=== PATIENT | male | born 1935 | race Caucasian/White ===

== ENCOUNTER 2022-08-11 00:09 | Inpatient (IN) | payer MEDICARE ==
[~2022-08-11] VITALS: Ht 167.6 cm; Wt 72.6 kg
--- NOTE | 2022-08-11 00:23 | NUR ---
Seen and examined by Dr. Luna MRSA culture swab collected
[2022-08-11] MEDS ORDERED: ATOR40TA PO (00:41)
[2022-08-11] MEDS ORDERED: CALC-1310 PO (00:41)
[2022-08-11] MEDS ORDERED: LEVO137T2 PO (00:41)
[2022-08-11] MEDS ORDERED: LOSA25TA27 PO (00:41)
[2022-08-11] MEDS ORDERED: FLUT1BLS6 IH (00:41)
[2022-08-11] MEDS ORDERED: APIX5TAB PO (00:41)
[2022-08-11] MEDS ORDERED: LATA2.5D15 EACHEYE (00:41)
[2022-08-11] MEDS ORDERED: OMEG1CAP PO ×2 (00:41→15:42)
[2022-08-11] MEDS ORDERED: CYAN-51 SL (00:41)
[2022-08-11] MEDS ORDERED: ASCO-375 PO (00:41)
[2022-08-11] MEDS ORDERED: OMEP20TA5 PO (00:41)
[2022-08-11] MEDS ORDERED: BUSP5TAB3 PO (00:41)
[2022-08-11] MEDS ORDERED: TACR1CAP2 PO ×2 (00:41)
[2022-08-11] MEDS ORDERED: ARMO150T2 PO (00:41)
[2022-08-11] MEDS ORDERED: MULT-594 PO (00:41)
[2022-08-11] MEDS ORDERED: MYCO250C PO (00:41)
--- NOTE | 2022-08-11 00:51 | NUR ---
Contacted Luz Elena
--- NOTE | 2022-08-11 02:34 | NUR ---
Luz Elena came.
--- NOTE | 2022-08-11 04:00 | NUR ---
GPS ADMISSION: Patient is a 87 year old male ,with multiple medical problems. The patient went to [facility], then came to [facility] and was put a 5150 for Suicidal Ideations. Per hold, the patient had verbalized having SI for the last 4 months and has had a failed suicide attempt in the past. Upon face to face evaluation, the patient looked unkept, was irritable, argumentative and short tempered. The patient did however make a verbal contract for safety with this policy writer typist. A Patients Rights Handbook and the Patient Advisement were provided to him . All belongings were inventoried and placed in safe. The unit rules, and expectations, plus the plan of care were discussed and the patient verbalized understanding. Safety Stratiges are in place at this time. No acute distress noted. Will endorse plan of care to the oncoming shift.
[2022-08-11] MEDS ORDERED: LORAZEPAM 1 MG TABLET PO PRN (05:30)
[2022-08-11] MEDS ORDERED: ACETAMINOPHEN 325 MG TABLET PO PRN (05:30)
[2022-08-11] MEDS ORDERED: MAGNESIUM HYDROXIDE 30 ML LIQUID UDC PO PRN (05:30)
[2022-08-11] MEDS ORDERED: MAG HYDROX/AL HYDROX/SIMETH 30 ML LIQUID UDC PO PRN (05:30)
[2022-08-11] MEDS ORDERED: TEMAZEPAM 7.5 MG CAPSULE PO PRN (05:30)
[2022-08-11 06:00] VITALS: BP 144/94
[2022-08-11 07:51] VITALS: BP 125/68
--- NOTE | 2022-08-11 10:40 | NUR ---
MANOLO Initial Discharge Note: Pt currently resides at a residential living called [facility] located at [address] [place] [address] ([phone]. Pt stated he is close with his demtyrhx-wk-fvn, Naz and significant other, Jackelin ([phone]. Pt's son, Elfgeo [phone] is his DPOA per pt. MANOLO will continue to work with pt, family and MD to ensure a safe and proper discharge plan.
[2022-08-11] MEDS: ESCITALOPRAM OXALATE 10 MG TABLET PO SCH (10:48)
[2022-08-11 15:26] VITALS: BP 131/83
[2022-08-11] MEDS: MYCOPHENOLATE MOFETIL 250 MG CAPSULE PO SCH (16:30)
[2022-08-11] MEDS: APIXABAN 5 MG TABLET PO SCH (16:31)
--- NOTE | 2022-08-11 18:26 | NUR ---
GPS: Nursing Notes: Destructive Behavior To Self: Patient is awake and responding to his name, uncooperative with nursing care, depressed mood and angry affect, overly demanding at times, gets easily irritable when redirected, argumentative, but following staff directions, when questioned by staff, stated, "No, I do not want to hurt myself... You guys wrote down that thing in the emergency department.." compliant with his mediations, verbally venu for safety, ambulatory with fww, unkempt appearance, unable to formulate a viable plan for self care, continue to monitor for safety, continue with treatment plan.
[2022-08-11 20:00] VITALS: BP 128/79
--- NOTE | 2022-08-11 20:30 | NUR ---
Received patient in his bed sleeping but easily arousable. He is noted A/O x 3 able to make his needs known and able to ambulate with the aid of a FWW. patient is focus on his medication regiment. he stated, "Make sure i am getting all my medications right". He stated that he is here because, "I need to come here and be put on a 5150 to be enrolled in a geriatric unit, so i was told". Patient denied SI or any plans to harm self. denial is convincing. patient is reassure for his safety, safety and fall precautions are in place. V/S are stable. he was given PO Fluids and snacks. all his needs are met. he is compliant with medication regiment. will continue to monitor.
[2022-08-11] MEDS: QUETIAPINE FUMARATE 25 MG TABLET PO SCH (20:31)
[2022-08-11] MEDS: ATORVASTATIN 40 MG TABLET PO SCH (20:31)
[2022-08-11] MEDS: TACROLIMUS ANHYDROUS 0.5 MG CAPSULE PO SCH (20:31)
[2022-08-11] MEDS: LATANOPROST OPHT DROP 2.5 ML BOTTLE EACHEYE SCH (20:31)
[2022-08-12] MEDS: PANTOPRAZOLE SODIUM 40 MG TABLET.DR PO SCH (07:04)
[2022-08-12] MEDS: LEVOTHYROXINE SODIUM 137 MCG TABLET PO SCH (07:06)
[2022-08-12 07:30] VITALS: BP 145/73
[2022-08-12] MEDS: TACROLIMUS ANHYDROUS 0.5 MG CAPSULE PO SCH ×2 (10:16→21:18)
[2022-08-12] MEDS: CYANOCOBALAMIN 1,000 MCG TABLET PO SCH (10:17)
[2022-08-12] MEDS: ASCORBIC ACID 500 MG TABLET PO SCH (10:18)
[2022-08-12] MEDS: APIXABAN 5 MG TABLET PO SCH ×2 (10:19→17:33)
[2022-08-12] MEDS: ESCITALOPRAM OXALATE 10 MG TABLET PO SCH (10:21)
[2022-08-12] MEDS: FLUTICASONE/VILANTEROL 1 EACH BLST.W.DEV INH SCH (10:28)
[2022-08-12] MEDS: CALCIUM CARBONATE 600 MG TABLET PO SCH (10:29)
[2022-08-12] MEDS: MYCOPHENOLATE MOFETIL 250 MG CAPSULE PO SCH ×2 (10:29→17:32)
[2022-08-12] MEDS: LOSARTAN POTASSIUM 25 MG TABLET PO SCH (10:32)
[2022-08-12] MEDS: MULTIVITAMINS,THERAPEUTIC TABLET PO SCH (10:33)
--- NOTE | 2022-08-12 10:55 | NUR ---
Firearms Report: Biomedical Engineer completed and submitted a [employer] firearms report for 5150 a danger to himself. A copy of report has been placed in patient chart.
--- NOTE | 2022-08-12 11:37 | NUR ---
MANOLO Family Contact: MANOLO spoke with pt's son, Elfeog ([phone]), Ibprvlnx-yb-emu, Naz ([phone]) and Brianne ([phone]) on a conference call regarding pt's discharge plan and treatment plan. Per Elfego, the family members are all out of state. The family is aware that pt is on a 72-hour hold until Wednesday. Family is aware that pt's hold may be upheld to a 14 day hold by the Soccer Referee during the hearing depending on the pt's status. SW informed the family on the pt's treatment plan for group therapy, recreational therapy, daily treatment by the psychiatrist and overall plan of care. Family is agreeable with the above information. Family stated pt only has Elfego as financial DPOA. Per families request, pt will discharge back to [facility] in [place] [address]. Per family, pt has a long time friend who also lives at the facility named Jackelin ([phone]). MANOLO informed Naz and Elfego that the pt is agreeable to a temporary residential facility if the pt is not ready to be on his own at the [facility] upon discharge. Family is aware of this plan and agreeable. MANOLO stated she will continue to contact them regarding pt's hearing result and discharge plan as available.
--- NOTE | 2022-08-12 15:17 | NUR ---
MANOLO Discharge Update: Pt will discharge back to [facility] [phone] [place] [address] by [facility] transportation ([phone]) confirmed by [facility] transportation agreement form received from Brianna in [facility] intake. MANOLO will contact the family independence case manager at ([phone]) to schedule transportation. MANOLO informed pt's son, Elfego ([phone]), Vqpsbkas-pf-ujd, Naz ([phone]) and Brianne ([phone]) on a conference call that the pt is agreeable to a temporary senior care facility prior to returning home if the pt is not ready to be on his own at the assisted living upon discharge. Pt and family are aware and agreeable with the above information.
--- NOTE | 2022-08-12 15:28 | NUR ---
MANOLO Discharge Update: Pt will discharge back to [facility] [phone] [address] when pt is stable for discharge or to a temporary [facility] facility if the pt is not stable enough to discharge on his own at an assisted living upon discharge. Pt will discharge by [facility] transportation ([phone]) confirmed by [facility] transportation agreement form received from Brianna in [facility] intake if pt returns to [facility] when stable. MANOLO will contact the rn case management at ([phone]) to schedule transportation when pt is stable. MANOLO informed pt's son, Elfego ([phone]), Vteuvwew-hv-wda, Naz ([phone]) and Brianne ([phone]) regarding the discharge update. Pt and family are aware and agreeable with the above information.
[2022-08-12 16:00] VITALS: BP 135/78
--- NOTE | 2022-08-12 16:00 | NUR ---
Pt is awake, calm and pleasant on approach. Pt is compliant with medications. Denies s.i. No self harming behavior, Pt is able to state his needs.Pt is self care ambulatory. Continue to monitor for safety, continue with treatment plan .
[2022-08-12 21:02] VITALS: BP 110/71
[2022-08-12] MEDS: QUETIAPINE FUMARATE 25 MG TABLET PO SCH (21:18)
[2022-08-12] MEDS: LATANOPROST OPHT DROP 2.5 ML BOTTLE EACHEYE SCH (21:18)
[2022-08-12] MEDS: ATORVASTATIN 40 MG TABLET PO SCH (21:18)
[2022-08-13] MEDS: LEVOTHYROXINE SODIUM 137 MCG TABLET PO SCH (06:26)
[2022-08-13] MEDS: PANTOPRAZOLE SODIUM 40 MG TABLET.DR PO SCH (06:26)
[2022-08-13 07:30] VITALS: BP 137/81
[2022-08-13 07:47] LABS: HEMATOCRIT 43.3 % (36.7-47.1); MEAN CORPUSCULAR HEMOGLOBIN 30.6 uug (23.8-33.4); MEAN CORPUSCULAR VOLUME 94.4 fL (73.0-96.2); PLATELET COUNT (AUTO) 223 K/uL (152-348)
[2022-08-13] MEDS: APIXABAN 5 MG TABLET PO SCH ×2 (09:04→16:44)
[2022-08-13 09:05] LABS: ALANINE AMINOTRANSFERASE 23 U/L (16-63); ALKALINE PHOSPHATASE 72 U/L (50-136); ASPARTATE AMINOTRANSFERASE 18 U/L (15-37); BILIRUBIN,TOTAL 0.7 mg/dL (0.2-1.0); CARBON DIOXIDE 32 mmol/L (21-32); CHLORIDE 101 mmol/L (98-107); CHOLESTEROL 163 mg/dL (<200); CREATININE 0.7 mg/dL (0.6-1.3); GLUCOSE 107 mg/dL (74-106); HDL CHOLESTEROL 69 mg/dL (40-60); MAGNESIUM 1.3 mg/dL (1.8-2.4); PHOSPHOROUS 3.6 mg/dL (2.5-4.9); TOTAL PROTEIN, SERUM 6.5 g/dL (6.4-8.2); TRIGLYCERIDES 54 MG/DL (30-150); UREA NITROGEN, BLOOD 16 mg/dL (7-18)
[2022-08-13] MEDS: CYANOCOBALAMIN 1,000 MCG TABLET PO SCH (09:05)
[2022-08-13] MEDS: LOSARTAN POTASSIUM 25 MG TABLET PO SCH (09:05)
[2022-08-13] MEDS: MULTIVITAMINS,THERAPEUTIC TABLET PO SCH (09:06)
[2022-08-13] MEDS: MYCOPHENOLATE MOFETIL 250 MG CAPSULE PO SCH ×2 (09:06→16:37)
[2022-08-13] MEDS: CALCIUM CARBONATE 600 MG TABLET PO SCH (09:06)
[2022-08-13] MEDS: ESCITALOPRAM OXALATE 10 MG TABLET PO SCH (09:06)
[2022-08-13] MEDS: ASCORBIC ACID 500 MG TABLET PO SCH (09:07)
[2022-08-13] MEDS: FLUTICASONE/VILANTEROL 1 EACH BLST.W.DEV INH SCH (09:08)
[2022-08-13] MEDS: TACROLIMUS ANHYDROUS 0.5 MG CAPSULE PO SCH ×2 (09:12→20:28)
--- NOTE | 2022-08-13 10:48 | NUR ---
Gps/Grease Man- Interacts when engaged, cooperative with staff ,Guarded, compliant with hsi routine meds. , reviewed with patient . Encouraged to participate in his group activity . 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
--- NOTE | 2022-08-13 14:00 | NUR ---
Nursing -Lisha (wound care Nurse ) in to see patient, checked right ear , sutures intact, eusebio., no redness, she claimed will order topical abx. to site.
[2022-08-13 16:00] VITALS: BP 104/50
--- NOTE | 2022-08-13 18:52 | NUR ---
Nursing -Dr Steve Ndiaye(Renal ) in to see patient
[2022-08-13] MEDS: LATANOPROST OPHT DROP 2.5 ML BOTTLE EACHEYE SCH (20:28)
[2022-08-13] MEDS: ATORVASTATIN 40 MG TABLET PO SCH (20:28)
[2022-08-13] MEDS: QUETIAPINE FUMARATE 25 MG TABLET PO SCH (20:28)
[2022-08-13 21:09] VITALS: BP 113/68
[2022-08-14] MEDS: LEVOTHYROXINE SODIUM 137 MCG TABLET PO SCH (06:11)
[2022-08-14] MEDS: PANTOPRAZOLE SODIUM 40 MG TABLET.DR PO SCH (06:11)
[2022-08-14 07:30] VITALS: BP 153/57
--- NOTE | 2022-08-14 08:44 | NUR ---
WOUND CARE CONSULT: RECEIVED CONSULT FOR SUTURES RT EAR (STATUS POST REMOVAL OF CANCEROUS LESION). DEFER TO SURGICAL TEAM CURRENTLY ON CASE. CURRENT LEORA SCORE IS 21.
[2022-08-14] MEDS: CYANOCOBALAMIN 1,000 MCG TABLET PO SCH (09:04)
[2022-08-14] MEDS: TACROLIMUS ANHYDROUS 0.5 MG CAPSULE PO SCH ×2 (09:04→20:40)
[2022-08-14] MEDS: LOSARTAN POTASSIUM 25 MG TABLET PO SCH (09:05)
[2022-08-14] MEDS: ESCITALOPRAM OXALATE 10 MG TABLET PO SCH (09:05)
[2022-08-14] MEDS: APIXABAN 5 MG TABLET PO SCH ×2 (09:06→17:14)
[2022-08-14] MEDS: ASCORBIC ACID 500 MG TABLET PO SCH (09:07)
[2022-08-14] MEDS: MYCOPHENOLATE MOFETIL 250 MG CAPSULE PO SCH ×2 (09:09→17:17)
[2022-08-14] MEDS: CALCIUM CARBONATE 600 MG TABLET PO SCH (09:09)
[2022-08-14] MEDS: FLUTICASONE/VILANTEROL 1 EACH BLST.W.DEV INH SCH (09:10)
[2022-08-14] MEDS: MULTIVITAMINS,THERAPEUTIC TABLET PO SCH (09:11)
[2022-08-14 16:00] VITALS: BP 119/71
--- NOTE | 2022-08-14 16:20 | NUR ---
14 days PC hearing done held for GD, patient requested writ , writ signed and faxed to court.
[2022-08-14 20:12] VITALS: BP 126/80
[2022-08-14] MEDS: ATORVASTATIN 40 MG TABLET PO SCH (20:40)
[2022-08-14] MEDS: QUETIAPINE FUMARATE 25 MG TABLET PO SCH (20:41)
[2022-08-14] MEDS: LATANOPROST OPHT DROP 2.5 ML BOTTLE EACHEYE SCH (20:42)
--- NOTE | 2022-08-15 05:50 | NUR ---
GPS NOTES: Received patient in his room, awake, he is pleasant and easy to approach, He is A&0x3, able to make needs known, ambulatory and self care. Patient denies SI and contract safety with the credit underwriter. He takes his medications with no issues. Snacks and fluids provided. He slept 7.30H this shift. No apparent distress. All safety measured implemented.
[2022-08-15] MEDS: PANTOPRAZOLE SODIUM 40 MG TABLET.DR PO SCH (06:14)
[2022-08-15] MEDS: LEVOTHYROXINE SODIUM 137 MCG TABLET PO SCH (06:14)
[2022-08-15 07:42] VITALS: BP 120/64
[2022-08-15] MEDS: APIXABAN 5 MG TABLET PO SCH ×2 (09:04→17:39)
[2022-08-15] MEDS: ESCITALOPRAM OXALATE 10 MG TABLET PO SCH (09:09)
[2022-08-15] MEDS: LOSARTAN POTASSIUM 25 MG TABLET PO SCH (09:09)
[2022-08-15] MEDS: MULTIVITAMINS,THERAPEUTIC TABLET PO SCH (09:10)
[2022-08-15] MEDS: TACROLIMUS ANHYDROUS 0.5 MG CAPSULE PO SCH ×2 (09:10→20:31)
[2022-08-15] MEDS: CYANOCOBALAMIN 1,000 MCG TABLET PO SCH (09:10)
[2022-08-15] MEDS: ASCORBIC ACID 500 MG TABLET PO SCH (09:11)
[2022-08-15] MEDS: CALCIUM CARBONATE 600 MG TABLET PO SCH (09:11)
[2022-08-15] MEDS: MYCOPHENOLATE MOFETIL 250 MG CAPSULE PO SCH ×2 (09:12→17:38)
[2022-08-15] MEDS: FLUTICASONE/VILANTEROL 1 EACH BLST.W.DEV INH SCH (09:20)
[2022-08-15 16:39] VITALS: BP 115/60
--- NOTE | 2022-08-15 16:44 | NUR ---
Received pt in room sitting anxious about his court hearing he attended WednesdayAugust 14. Reassurance was provided. Pt can make his simple needs known to the staff, interacts when engaged, compliant with routine medications. Pt denies SI/HI at this time. Continue to monitor for safety, Continue with treatment plan.
[2022-08-15 20:00] VITALS: BP 134/68
[2022-08-15] MEDS: QUETIAPINE FUMARATE 25 MG TABLET PO SCH (20:31)
[2022-08-15] MEDS: LATANOPROST OPHT DROP 2.5 ML BOTTLE EACHEYE SCH (20:31)
[2022-08-15] MEDS: ATORVASTATIN 40 MG TABLET PO SCH (20:31)
--- NOTE | 2022-08-16 04:42 | NUR ---
GPS: Nursing Notes: Destructive Behavior To Self: Patient is alert and oriented x3,ambulatory. pt awake and responding to his name, cooperative with nursing care, depressed mood and angry affect, gets easily irritable when redirected, pt following staff directions, when questioned by staff, stated, "No, I do not want to hurt myself. compliant with his mediations, verbally venu for safety, unkempt appearance, unable to formulate a viable plan for self care, continue to monitor for safety, continue with treatment plan.
[2022-08-16] MEDS: PANTOPRAZOLE SODIUM 40 MG TABLET.DR PO SCH (06:08)
[2022-08-16] MEDS: LEVOTHYROXINE SODIUM 137 MCG TABLET PO SCH ×2 (06:09→06:11)
--- NOTE | 2022-08-16 06:29 | NUR ---
NSG: PATIENT SLEPT 6.45 HRS THROUGH THE NIGHT.
[2022-08-16 08:07] VITALS: BP 115/69
[2022-08-16] MEDS: CYANOCOBALAMIN 1,000 MCG TABLET PO SCH (10:15)
[2022-08-16] MEDS: ASCORBIC ACID 500 MG TABLET PO SCH (10:15)
[2022-08-16] MEDS: ESCITALOPRAM OXALATE 10 MG TABLET PO SCH (10:15)
[2022-08-16] MEDS: CALCIUM CARBONATE 600 MG TABLET PO SCH (10:15)
[2022-08-16] MEDS: TACROLIMUS ANHYDROUS 0.5 MG CAPSULE PO SCH ×2 (10:16→20:59)
[2022-08-16] MEDS: MYCOPHENOLATE MOFETIL 250 MG CAPSULE PO SCH ×2 (10:16→17:53)
[2022-08-16] MEDS: LOSARTAN POTASSIUM 25 MG TABLET PO SCH (10:17)
[2022-08-16] MEDS: FLUTICASONE/VILANTEROL 1 EACH BLST.W.DEV INH SCH (10:17)
[2022-08-16] MEDS: APIXABAN 5 MG TABLET PO SCH ×2 (10:18→17:53)
[2022-08-16] MEDS: ENSURE ENLIVE (VAN) 240 ML LIQUID PO SCH (10:21)
[2022-08-16] MEDS: MULTIVITAMINS,THERAPEUTIC TABLET PO SCH (10:33)
[2022-08-16 16:39] VITALS: BP 142/82
[2022-08-16 20:06] VITALS: BP 138/75
[2022-08-16] MEDS: ATORVASTATIN 40 MG TABLET PO SCH (20:59)
[2022-08-16] MEDS: QUETIAPINE FUMARATE 25 MG TABLET PO SCH (20:59)
[2022-08-16] MEDS: LATANOPROST OPHT DROP 2.5 ML BOTTLE EACHEYE SCH (21:00)
--- NOTE | 2022-08-17 02:57 | NUR ---
Patient is overall compliant with POC. Pt is self ambulatory with FWW. Goal oriented, yet forgetful. AOx3. Responds well to medications. Denies SI/HI and contracted for safety. Will continue to monitor.
[2022-08-17] MEDS: PANTOPRAZOLE SODIUM 40 MG TABLET.DR PO SCH (06:19)
[2022-08-17] MEDS: LEVOTHYROXINE SODIUM 137 MCG TABLET PO SCH (06:20)
[2022-08-17 07:48] VITALS: BP 140/67
[2022-08-17] MEDS: MYCOPHENOLATE MOFETIL 250 MG CAPSULE PO SCH ×2 (09:01→16:25)
[2022-08-17] MEDS: TACROLIMUS ANHYDROUS 0.5 MG CAPSULE PO SCH ×2 (09:02→21:31)
[2022-08-17] MEDS: MULTIVITAMINS,THERAPEUTIC TABLET PO SCH (09:03)
[2022-08-17] MEDS: ASCORBIC ACID 500 MG TABLET PO SCH (09:03)
[2022-08-17] MEDS: CYANOCOBALAMIN 1,000 MCG TABLET PO SCH (09:03)
[2022-08-17] MEDS: FLUTICASONE/VILANTEROL 1 EACH BLST.W.DEV INH SCH (09:04)
[2022-08-17] MEDS: ENSURE ENLIVE (VAN) 240 ML LIQUID PO SCH (09:05)
[2022-08-17] MEDS: LOSARTAN POTASSIUM 25 MG TABLET PO SCH (09:05)
[2022-08-17] MEDS: APIXABAN 5 MG TABLET PO SCH ×2 (09:06→16:26)
[2022-08-17] MEDS: ESCITALOPRAM OXALATE 10 MG TABLET PO SCH (09:07)
[2022-08-17] MEDS: CALCIUM CARBONATE 600 MG TABLET PO SCH (09:07)
--- NOTE | 2022-08-17 10:46 | NUR ---
MANOLO Family Contact: MANOLO spoke with pt's son, Elfego ([phone]), Whsgixbx-by-pzq, Naz ([phone]) via phone call regarding pt's discharge update. MANOLO informed the pt's family that due to the court's closure today for President's Day, the pt's writ is date and time is unknown at this time. Family is aware and agreeable that they will be informed once this grant writer has updates. Family is also aware and agreeable that the pt may return to his [facility]DEPENDENT [facility] [place] [address] by [facility] when pt is stable for discharge. MANOLO informed Elfego and Naz that if the pt is released from his hold by the court during the writ, family will be informed prior to patient's return home. At this time, MANOLO informed the family that pt is in between choosing a temporary facility per families request and returning to his independent living. MANOLO will confirm with family after speaking with pt's Psychiatrist, Dr. Bernal with the final discharge plan. Pt does not have a DPOA or conservator.
--- NOTE | 2022-08-17 13:27 | NUR ---
SW Discharge Update: MANOLO spoke with high risk case manager, Leigh from [facility] transportation ([phone]) who confirmed transportation from [facility] to return to pt's home upon discharge. Leigh sated either her or the other high risk case manager, Rachel will assist with arranging transportation back to [facility] when pt is stable for discharge.
[2022-08-17 16:34] VITALS: BP 121/77
--- NOTE | 2022-08-17 16:37 | NUR ---
pt received alert and oriented x3,cooperative with care, compliant with medications. pt is asking about his discharge, states he wants to go back to his home patient requested for writ ,will asked charge nurse to follow up in AM due to court close today.
[2022-08-17] MEDS: THERAHONEY GEL 1.5 OZ TUBE TOP SCH (20:00)
[2022-08-17 20:20] VITALS: BP 133/72
[2022-08-17] MEDS: LATANOPROST OPHT DROP 2.5 ML BOTTLE EACHEYE SCH (21:00)
[2022-08-17] MEDS: QUETIAPINE FUMARATE 25 MG TABLET PO SCH (21:31)
[2022-08-17] MEDS: ATORVASTATIN 40 MG TABLET PO SCH (21:31)
[2022-08-17] MEDS ORDERED: LATANOPROST OPHT DROP 2.5 ML BOTTLE ONE (23:34)
--- NOTE | 2022-08-18 05:14 | NUR ---
Pharmacy has not delivered Latanoprost Ophthalmic Solution, nor Therma-Honey Gel even though they've been scheduled in the eMAR for this shift. Due to the pharmacy being closed this shift, this nurse notified nursing supervisor laboratory animal facility of the issue. Will follow-up with the pharmacy at end of shift. Patient made aware of the matter.
[2022-08-18] MEDS: PANTOPRAZOLE SODIUM 40 MG TABLET.DR PO SCH (06:14)
[2022-08-18] MEDS: LEVOTHYROXINE SODIUM 137 MCG TABLET PO SCH (06:15)
[2022-08-18 07:30] VITALS: BP 146/85
[2022-08-18 07:30] LABS: HEMATOCRIT 44.6 % (36.7-47.1); MEAN CORPUSCULAR HEMOGLOBIN 29.9 uug (23.8-33.4); MEAN CORPUSCULAR VOLUME 93.8 fL (73.0-96.2); PLATELET COUNT (AUTO) 258 K/uL (152-348)
[2022-08-18 08:01] LABS: ALANINE AMINOTRANSFERASE 23 U/L (16-63); ALKALINE PHOSPHATASE 75 U/L (50-136); ASPARTATE AMINOTRANSFERASE 18 U/L (15-37); BILIRUBIN,TOTAL 0.8 mg/dL (0.2-1.0); CARBON DIOXIDE 30 mmol/L (21-32); CHLORIDE 102 mmol/L (98-107); CREATININE 0.7 mg/dL (0.6-1.3); GLUCOSE 108 mg/dL (74-106); MAGNESIUM 1.5 mg/dL (1.8-2.4); PHOSPHOROUS 3.2 mg/dL (2.5-4.9); POTASSIUM 4.6 mmol/L (3.5-5.1); TOTAL PROTEIN, SERUM 6.8 g/dL (6.4-8.2); UREA NITROGEN, BLOOD 17 mg/dL (7-18)
[2022-08-18] MEDS: THERAHONEY GEL 1.5 OZ TUBE TOP SCH (08:56)
[2022-08-18] MEDS: FLUTICASONE/VILANTEROL 1 EACH BLST.W.DEV INH SCH (08:56)
[2022-08-18] MEDS: LOSARTAN POTASSIUM 25 MG TABLET PO SCH (08:57)
[2022-08-18] MEDS: ESCITALOPRAM OXALATE 10 MG TABLET PO SCH (08:58)
[2022-08-18] MEDS: APIXABAN 5 MG TABLET PO SCH ×2 (08:58→17:27)
[2022-08-18] MEDS: CYANOCOBALAMIN 1,000 MCG TABLET PO SCH (08:58)
[2022-08-18] MEDS: MYCOPHENOLATE MOFETIL 250 MG CAPSULE PO SCH ×2 (08:59→17:26)
[2022-08-18] MEDS: CALCIUM CARBONATE 600 MG TABLET PO SCH (08:59)
[2022-08-18] MEDS: MULTIVITAMINS,THERAPEUTIC TABLET PO SCH (09:00)
[2022-08-18] MEDS: ASCORBIC ACID 500 MG TABLET PO SCH (09:01)
[2022-08-18] MEDS: ENSURE ENLIVE (VAN) 240 ML LIQUID PO SCH (09:02)
[2022-08-18] MEDS: TACROLIMUS ANHYDROUS 0.5 MG CAPSULE PO SCH ×2 (09:03→21:33)
[2022-08-18] MEDS ORDERED: MAGNESIUM OXIDE 400 MG TABLET PO ONE (09:15)
--- NOTE | 2022-08-18 10:29 | NUR ---
Patient writ was faxed to [facility] at [phone] at 10:17, fax was received and confirmed by Dimitrios. Writ is going to be schedule in two days.
--- NOTE | 2022-08-18 14:29 | NUR ---
MANOLO Family Contact: SW spoke with pt's son, Elfego ([phone]), Dyoidebr-gr-sep, Naz ([phone]) via phone call and email regarding pt's discharge plan to [facility] [address] [facility] located at [address] [place] [address]) [phone] via FACILITY TRANSPORTATION by non-emergency medical transport at 11AM confirmed by Marion. Family was very pleased with the temporary discharge plan prior to returning to pt's independent living called [facility] upon discharge.
--- NOTE | 2022-08-18 15:40 | NUR ---
Received patient in his room, awake, Alert x 3 , cooperative, denies pain or discomforts, compliance with medication, follows directions, denies SI/HI/VH/AH, Patient stated, "I am here because I said something dumb, I just want to go back where come from , oh god , I want to go back, I will never want to do anything hurt myself". Calling frequent phone calls, Patient participating with groups and daily care, treatment done to bilateral ears as ordered. Patient focus on discharge. Maintaining a safe environment at all times, will continue to monitor.
[2022-08-18 16:00] VITALS: BP 104/56
--- NOTE | 2022-08-18 16:05 | NUR ---
MANOLO Family Contact: SW left a voicemail for pt's daughter, Brianne ( ) regarding pt's discharge plan to [facility] located at [address] [place] [address] via FACILITY TRANSPORTATION by non-emergency medical transport at 11AM confirmed by Marion. In addition, SW answered Brianne's questions in her email via voicemail and left a contact number for a call back for further questions. Pt is alert and oriented x4. Pt is aware and agreeable with the discharge plan.
[2022-08-18 20:29] VITALS: BP 99/53
[2022-08-18] MEDS: LATANOPROST OPHT DROP 2.5 ML BOTTLE EACHEYE SCH (21:00)
[2022-08-18] MEDS: QUETIAPINE FUMARATE 25 MG TABLET PO SCH (21:32)
[2022-08-18] MEDS: ATORVASTATIN 40 MG TABLET PO SCH (21:33)
[2022-08-19] MEDS: PANTOPRAZOLE SODIUM 40 MG TABLET.DR PO SCH (06:52)
[2022-08-19 07:30] VITALS: BP 131/74
[2022-08-19] MEDS: THERAHONEY GEL 1.5 OZ TUBE TOP SCH (08:19)
[2022-08-19] MEDS: ESCITALOPRAM OXALATE 10 MG TABLET PO SCH (08:20)
[2022-08-19] MEDS: CALCIUM CARBONATE 600 MG TABLET PO SCH (08:20)
[2022-08-19] MEDS: MYCOPHENOLATE MOFETIL 250 MG CAPSULE PO SCH (08:20)
[2022-08-19] MEDS: ASCORBIC ACID 500 MG TABLET PO SCH (08:20)
[2022-08-19] MEDS: APIXABAN 5 MG TABLET PO SCH (08:24)
[2022-08-19 08:27] VITALS: BP 131/74
[2022-08-19] MEDS: MULTIVITAMINS,THERAPEUTIC TABLET PO SCH (08:27)
[2022-08-19] MEDS: FLUTICASONE/VILANTEROL 1 EACH BLST.W.DEV INH SCH (08:27)
[2022-08-19] MEDS: LOSARTAN POTASSIUM 25 MG TABLET PO SCH (08:27)
--- NOTE | 2022-08-19 08:34 | NUR ---
MANOLO Discharge Screener: MANOLO completed a discharge screener with the pt.
[2022-08-19] MEDS ORDERED: MAGNESIUM OXIDE 400 MG TABLET PO SCH (09:00)
[2022-08-19] MEDS: ENSURE ENLIVE (VAN) 240 ML LIQUID PO SCH (09:22)
[2022-08-19] MEDS: TACROLIMUS ANHYDROUS 0.5 MG CAPSULE PO SCH (09:23)
--- NOTE | 2022-08-19 09:27 | NUR ---
MANOLO Discharge Note: Pt will be discharged to [facility] long term facility located at [address] [place] [address]) [phone] via FACILITY TRANSPORTATION by non-emergency medical transport at 11AM. MANOLO spoke with Marion yip at the facility who states they are ready to accept the patient today. Pt is aware and agreeable with discharge plan. Pt's son, Elfego ([phone] Financial DPOA only), Cgjxpikr-zk-fvy, Naz ([phone]), and daughter, Brianne ([phone]) are aware and agreeable with the discharge plan. Pt is alert and oriented x4, is unable to plan for self-care at this time. However, pt is willing to accept care at SNF prior to returning to his independent living, [facility]. Pt denies any suicidal or homicidal ideation. Pt will follow-up at the facility with his outpatient Psychiatrist, Dr. Mcginnis from [facility] [address] ([phone]) and Rubber Insulator, Dr. Coker at the facility. MANOLO provided Dr. Parker information to Marion at [place] for pts continuation of care. Pt presents with calm mood and congruent affect. PHARMACY: [facility] [address] .
[2022-08-19] MEDS: CYANOCOBALAMIN 1,000 MCG TABLET PO SCH (09:28)
--- NOTE | 2022-08-19 11:53 | NUR ---
Received orders to discharge this patient to [facility] located at [address] [place] [address] ([phone]) via Facility transportation by non emergency medical transportation at 11AM. Patient's valuables and belongings were returned to patient. Patient was agreeable with discharge plans, and signed all discharge documents. Patient denies SI/HI AH/VH, SOB, pain. Patient left the unit at 11:30AM. Emotional support provided. Fall and safety precautions implemented.
== END 2022-08-19 11:30 | DRG 885 ==
LOC: ER 00:11 → GPS 03:28
PROVIDERS: ADMIT Psychiatry & Neurology Psychiatry; ATTEND Internal Medicine
DX: F31.5 Bipolar disorder, current episode depressed, severe, with psychotic features (principal); R45.851 Suicidal ideations; D83.9 Common variable immunodeficiency, unspecified; Z94.0 Kidney transplant status; I48.0 Paroxysmal atrial fibrillation; Z79.01 Long term (current) use of anticoagulants; J43.9 Emphysema, unspecified; E03.9 Hypothyroidism, unspecified; Z66 Do not resuscitate; Z79.890 Hormone replacement therapy; N40.0 Benign prostatic hyperplasia without lower urinary tract symptoms; Z79.624 Long term (current) use of inhibitors of nucleotide synthesis; I71.40 Abdominal aortic aneurysm, without rupture, unspecified; M19.90 Unspecified osteoarthritis, unspecified site; M85.80 Other specified disorders of bone density and structure, unspecified site; E78.5 Hyperlipidemia, unspecified; H40.9 Unspecified glaucoma; Z20.822 Contact with and (suspected) exposure to COVID-19; Z98.49 Cataract extraction status, unspecified eye; F10.21 Alcohol dependence, in remission; Z88.2 Allergy status to sulfonamides; Z87.891 Personal history of nicotine dependence; Z85.828 Personal history of other malignant neoplasm of skin; Z88.8 Allergy status to other drugs, medicaments and biological substances; L90.5 Scar conditions and fibrosis of skin; Z79.621 Long term (current) use of calcineurin inhibitor; Z48.817 Encounter for surgical aftercare following surgery on the skin and subcutaneous tissue; Z87.19 Personal history of other diseases of the digestive system; I70.0 Atherosclerosis of aorta; I10 Essential (primary) hypertension; Z91.51 Personal history of suicidal behavior; G47.00 Insomnia, unspecified; E83.42 Hypomagnesemia; E11.42 Type 2 diabetes mellitus with diabetic polyneuropathy; D64.9 Anemia, unspecified
CPT/HCPCS: 36415; 71045; 83735; 84100; 84443; 84481; 85025; 93005; A4663; J7507; J7517